=== PATIENT | female | born 1935 | race Caucasian/White ===

== ENCOUNTER 2016-09-22 23:45 | Inpatient (IN) | payer MEDICAID, OTHER ==
[~2016-09-22] VITALS: Ht 157.5 cm; Wt 49.9 kg
[~2016-09-22 23:45] MED LIST: ACET-1182 PO; ACET-9529 PO; AMOX500C25 PO; BASE TP; BISA10SU46 RC; DOCU-67 PO; FAMO-90 PO; LEVO750T2 PO; METR250T2 PO; MOM PO; MORP2SOL18 IVP; ONDA2SOL45 IVP; Pantoprazole Sodium PO; Potassium Chloride PO; SACC250C1 PO; SENN8.6T99 PO; SPIR50TA PO; ZGUARD TP
[2016-09-22] MEDS ORDERED: NACL 0.9% 1,000 ML IV ONE (23:57)
[2016-09-23] VITALS: BP 145/83
[2016-09-23 00:46] LABS: BASOPHILS # (AUTO) 0.2 K/uL (0.00-0.22); BASOPHILS % (AUTO) 3.1 % (0.0-2.0); EOSINOPHILS # (AUTO) 0.5 K/uL (0-0.4); EOSINOPHILS % (AUTO) 8.1 % (0.0-4.0); HEMATOCRIT 38.3 % (36-48); HEMOGLOBIN 12.3 g/dL (12.0-16.0); LYMPHOCYTES # (AUTO) 1.1 K/uL (2.5-16.5); LYMPHOCYTES % (AUTO) 15.9 % (20.5-51.1); MEAN CORPUSCULAR HEMOGLOBIN 28 pg (27-31); MEAN CORPUSCULAR HGB CONC 32 g/dL (33-37); MEAN CORPUSCULAR VOLUME 87 fL (80-94); MONOCYTES # (AUTO) 0.7 K/uL (0.8-1.0); MONOCYTES % (AUTO) 10.3 % (1.7-9.3); NEUTROPHILS # (AUTO) 4.2 K/uL (1.8-7.7); NEUTROPHILS % (AUTO) 62.6 % (42.2-75.2); PLATELET COUNT (AUTO) 244 K/uL (140-450); RED BLOOD CELL COUNT(AUTO) 4.38 MIL/uL (4.20-5.40); RED CELL DISTRIBUTION WIDTH 16.9 % (11.6-13.7); WHITE BLOOD COUNT (AUTO) 6.7 K/uL (4.8-10.8)
[2016-09-23] MEDS ORDERED: MULT1SGL58 PO (00:55)
[2016-09-23] MEDS ORDERED: ATI.5 PO (00:55)
[2016-09-23] MEDS ORDERED: SENN8.6T90 PO (00:55)
[2016-09-23] MEDS ORDERED: VIT500LI PO (00:55)
[2016-09-23 01:01] LABS: ALANINE AMINOTRANSFERASE 15 U/L (14-59); ALBUMIN 2.8 g/dL (3.4-5.0); ALKALINE PHOSPHATASE 168 U/L (46-116); ANION GAP 13.2 (8-16); ASPARTATE AMINOTRANSFERASE 20 U/L (15-37); CALCIUM 9.4 mg/dL (8.5-10.1); CARBON DIOXIDE 24.5 mmol/L (21-32); CHLORIDE 105 mmol/L (98-107); CREATININE 0.7 mg/dL (0.6-1.3); GLUCOSE 124 mg/dL (74-106); LIPASE 228 U/L (73-393); POTASSIUM 4.7 mmol/L (3.5-5.1); SODIUM SERUM 138 mmol/L (136-145); TOTAL BILIRUBIN 0.3 mg/dL (0.0-1.0); TOTAL PROTEIN, SERUM 7.6 g/dL (6.4-8.2); UREA NITROGEN, BLOOD 21 mg/dL (7-18)
[2016-09-23 01:02] LABS: INR 1.1 (0.8-1.2); PARTIAL THROMBOPLASTIN TIME 29.1 secs (22-35.6); PROTHROMBIN TIME 11.1 secs (10.8-13.4)
[2016-09-23] MEDS ORDERED: ONDANSETRON 4 MG/2 ML VIAL IVP PRN (01:30)
[2016-09-23] MEDS ORDERED: MORPHINE SULFATE 2 MG/ML SYR IVP PRN (01:30)
[2016-09-23] MEDS ORDERED: ACETAMINOPHEN 325 MG TAB PO PRN (01:30)
[2016-09-23 02:33] VITALS: BP 147/68
[2016-09-23] MEDS: NACL 0.9% 1,000 ML IV SCH ×3 (02:38→21:26)
[2016-09-23 04:00] VITALS: BP 140/58
[2016-09-23 08:01] VITALS: BP 155/67
[2016-09-23] MEDS ORDERED: ALGINATE ROPE TP PRN (12:15)
[2016-09-23] MEDS ORDERED: Z-GUARD PASTE TP PRN (12:15)
[2016-09-23] MEDS: Z-GUARD PASTE TP SCH (13:35)
[2016-09-23] MEDS: ALGINATE ROPE TP SCH (13:35)
[2016-09-23 16:00] VITALS: BP 190/85
[2016-09-23] MEDS ORDERED: MAGNESIUM CITRATE 300 ML BTL PO SCH (17:45)
[2016-09-23] MEDS ORDERED: NEOSTIGMINE 1:1000 10 MG/10 ML VIAL IV SCH (21:00)
[2016-09-24] VITALS: BP 127/65
[2016-09-24] MEDS: Z-GUARD PASTE TP SCH ×2 (01:00→13:00)
[2016-09-24] MEDS: NACL 0.9% 1,000 ML IV SCH ×2 (01:14→15:28)
[2016-09-24 06:31] LABS: BASOPHILS % (AUTO) 0.6 % (0.0-2.0); EOSINOPHILS # (AUTO) 0.1 K/uL (0-0.4); EOSINOPHILS % (AUTO) 2.1 % (0.0-4.0); HEMATOCRIT 36.8 % (36-48); HEMOGLOBIN 12.3 g/dL (12.0-16.0); LYMPHOCYTES # (AUTO) 1.2 K/uL (2.5-16.5); LYMPHOCYTES % (AUTO) 17.1 % (20.5-51.1); MEAN CORPUSCULAR HEMOGLOBIN 29 pg (27-31); MEAN CORPUSCULAR HGB CONC 34 g/dL (33-37); MEAN CORPUSCULAR VOLUME 86 fL (80-94); MONOCYTES # (AUTO) 0.9 K/uL (0.8-1.0); NEUTROPHILS # (AUTO) 4.9 K/uL (1.8-7.7); NEUTROPHILS % (AUTO) 68.2 % (42.2-75.2); PLATELET COUNT (AUTO) 217 K/uL (140-450); RED BLOOD CELL COUNT(AUTO) 4.26 MIL/uL (4.20-5.40); RED CELL DISTRIBUTION WIDTH 16.8 % (11.6-13.7); WHITE BLOOD COUNT (AUTO) 7.1 K/uL (4.8-10.8)
[2016-09-24 07:02] LABS: ALANINE AMINOTRANSFERASE 16 U/L (14-59); ALBUMIN 2.8 g/dL (3.4-5.0); ALKALINE PHOSPHATASE 155 U/L (46-116); ANION GAP 12.4 (8-16); ASPARTATE AMINOTRANSFERASE 27 U/L (15-37); CALCIUM 9.1 mg/dL (8.5-10.1); CARBON DIOXIDE 24.2 mmol/L (21-32); CHLORIDE 110 mmol/L (98-107); CREATININE 0.5 mg/dL (0.6-1.3); GLUCOSE 102 mg/dL (74-106); POTASSIUM 3.6 mmol/L (3.5-5.1); SODIUM SERUM 143 mmol/L (136-145); TOTAL BILIRUBIN 0.6 mg/dL (0.0-1.0); TOTAL PROTEIN, SERUM 7.4 g/dL (6.4-8.2); UREA NITROGEN, BLOOD 15 mg/dL (7-18)
[2016-09-24 08:00] VITALS: BP 147/86
[2016-09-24] MEDS ORDERED: MUPIROCIN 2% OINT 22 GM TUBE TP SCH (09:40)
[2016-09-24] MEDS: SENNA 8.6 MG TAB PO SCH ×3 (09:43→17:08)
[2016-09-24 12:00] VITALS: BP 172/88
[2016-09-24] MEDS: ALGINATE ROPE TP SCH (13:00)
[2016-09-24] MEDS ORDERED: NEOSTIGMINE 1:1000 10 MG/10 ML VIAL IV SCH (14:00)
[2016-09-24 16:00] VITALS: BP 118/56
[2016-09-24 20:00] VITALS: BP 99/53
[2016-09-24] MEDS: POLYETHYLENE GLYCOL 17 GM/PKT PO SCH (21:36)
[2016-09-25] VITALS: BP 119/58
[2016-09-25] MEDS: Z-GUARD PASTE TP SCH ×2 (01:05→12:46)
[2016-09-25] MEDS: NEOSTIGMINE 1:1000 10 MG/10 ML VIAL IV SCH ×2 (03:00→14:00)
[2016-09-25 04:00] VITALS: BP 115/62
[2016-09-25 07:01] LABS: BASOPHILS # (AUTO) 0.1 K/uL (0.00-0.22); EOSINOPHILS # (AUTO) 0.4 K/uL (0-0.4); EOSINOPHILS % (AUTO) 5.6 % (0.0-4.0); HEMATOCRIT 34.5 % (36-48); HEMOGLOBIN 10.9 g/dL (12.0-16.0); LYMPHOCYTES # (AUTO) 1.2 K/uL (2.5-16.5); LYMPHOCYTES % (AUTO) 18.9 % (20.5-51.1); MEAN CORPUSCULAR HEMOGLOBIN 28 pg (27-31); MEAN CORPUSCULAR HGB CONC 32 g/dL (33-37); MEAN CORPUSCULAR VOLUME 87 fL (80-94); MONOCYTES # (AUTO) 0.7 K/uL (0.8-1.0); MONOCYTES % (AUTO) 10.9 % (1.7-9.3); NEUTROPHILS % (AUTO) 62.6 % (42.2-75.2); PLATELET COUNT (AUTO) 214 K/uL (140-450); RED BLOOD CELL COUNT(AUTO) 3.95 MIL/uL (4.20-5.40); WHITE BLOOD COUNT (AUTO) 6.4 K/uL (4.8-10.8)
[2016-09-25 07:21] LABS: ANION GAP 10.6 (8-16); CALCIUM 8.9 mg/dL (8.5-10.1); CARBON DIOXIDE 23.7 mmol/L (21-32); CHLORIDE 112 mmol/L (98-107); CREATININE 0.5 mg/dL (0.6-1.3); GLUCOSE 107 mg/dL (74-106); POTASSIUM 3.3 mmol/L (3.5-5.1); SODIUM SERUM 143 mmol/L (136-145); UREA NITROGEN, BLOOD 17 mg/dL (7-18)
[2016-09-25 08:00] VITALS: BP 144/72
[2016-09-25] MEDS: POLYETHYLENE GLYCOL 17 GM/PKT PO SCH (08:30)
[2016-09-25] MEDS: SENNA 8.6 MG TAB PO SCH ×3 (08:31→17:58)
[2016-09-25] MEDS ORDERED: MUPIROCIN 2% OINT 22 GM TUBE TP SCH (09:00)
[2016-09-25] MEDS ORDERED: CHLORHEXADINE GLUC 2% CLOTH TP SCH (09:00)
[2016-09-25] MEDS ORDERED: KCL 20 MEQ/WATER INJ PREMIX 200 ML IV SCH (10:00)
[2016-09-25] MEDS ORDERED: SENN8.6T99 PO (10:36)
[2016-09-25] MEDS ORDERED: POLY17PD46 PO (10:36)
[2016-09-25 12:00] VITALS: BP 144/72
[2016-09-25] MEDS: ALGINATE ROPE TP SCH (12:46)
[2016-09-25 16:00] VITALS: BP 130/70
[2016-09-25 16:23] VITALS: BP 144/72
== END 2016-09-25 17:25 | DRG 252 ==
LOC: MED 23:45 → MTU 09-23 01:28
PROVIDERS: ADMIT Hospitalist; ATTEND Hospitalist
DX: K94.09 Other complications of colostomy (principal); E43 Unspecified severe protein-calorie malnutrition; L89.210 Pressure ulcer of right hip, unstageable; L89.220 Pressure ulcer of left hip, unstageable; G93.41 Metabolic encephalopathy; K56.60 Unspecified intestinal obstruction; G30.9 Alzheimer's disease, unspecified; N39.0 Urinary tract infection, site not specified; F02.80 Dementia in other diseases classified elsewhere, unspecified severity, without behavioral disturbance, psychotic disturbance, mood disturbance, and anxiety; K59.09 Other constipation; Z51.5 Encounter for palliative care; F41.9 Anxiety disorder, unspecified; D53.9 Nutritional anemia, unspecified; E66.9 Obesity, unspecified; I10 Essential (primary) hypertension; Z68.37 Body mass index [BMI] 37.0-37.9, adult; Z87.440 Personal history of urinary (tract) infections; Z87.01 Personal history of pneumonia (recurrent)
CPT/HCPCS: 36415; 51702; 74000; 80048; 80053; 83690; 85025; 85610; 85730; 87070; 87077; 87081; 87186; 96360; 99285; A4649; J2710; J3480; J7030; Q0092